=== PATIENT | male | born 1975 | race Caucasian/White ===

== ENCOUNTER 2017-09-14 20:48 | Inpatient (IN) | payer OTHER ==
[2017-09-14 20:57] VITALS: BMI 22.7
--- NOTE | 2017-09-14 21:29 | ED PDOC ---
Arrival/HPI - General Chief Complaint: Psychiatric Evaluation Time Seen by Provider: 09/14/17 20:56 Historian: Patient - History of Present Illness Narrative History of Present Illness (Text): 09/14/17 21:26 This 41 yo male with pmh depression, presents to this ED c/o worsening of depression since early this morning. Patient stated he has bee depressed for a long time, and he also noted stopping Wellbutrin " a while back ago". Patient admits having constant suicidal ideation. Patient denies hallucination, HI, drug abuse, alcohol abuse, dizziness, or abnormal gait. Time/Duration: Other (see hpi) Context: Home Past Medical History - Provider Review Nursing Documentation Reviewed: Yes - Musculoskeletal/Rheumatological Hx Falls: No - Psychiatric Hx Anxiety: Yes Hx Depression: Yes Hx Substance Use: No - Surgical History Other/Comment: left shoulder surgery - Anesthesia Hx Anesthesia: Yes Family/Social History - Physician Review Nursing Documentation Reviewed: Yes Family/Social History: Other (noncontributory) Smoking Status: Current Some Days Smoker Hx Alcohol Use: Yes Frequency of alcohol use: Socially Hx Substance Use: No Allergies/Home Meds Allergies/Adverse Reactions: Allergies No Known Allergies Allergy (Verified 09/14/17 20:56) Home Medications: Home Meds Medication Instructions Recorded Confirmed Bupropion Hydrochloride 100 mg PO DAILY 09/23/13 09/14/17 [Wellbutrin] Review of Systems - Review of Systems Constitutional: Normal. absent: Fatigue, Weight Change, Fevers Eyes: Normal ENT: Normal Respiratory: Normal. absent: SOB, Cough Cardiovascular: Normal. absent: Chest Pain Gastrointestinal: Normal Genitourinary Male: Normal Musculoskeletal: Normal Skin: Normal Neurological: Normal Endocrine: Normal Hemo/Lymphatic: Normal Psychiatric: Depression, Suicidal Ideation Physical Exam Vital Signs Temp Pulse Resp BP Pulse Ox 09/14/17 23:39 88 18 104/79 98 09/14/17 21:02 98.2 F 87 16 133/89 100 Temperature: Afebrile Blood Pressure: Normal Pulse: Regular Respiratory Rate: Normal Appearance: Positive for: Well-Appearing, Non-Toxic, Comfortable Pain Distress: None Mental Status: Positive for: Alert and Oriented X 3 - Systems Exam Head: Present: Atraumatic, Normocephalic Pupils: Present: PERRL Extroacular Muscles: Present: EOMI Conjunctiva: Present: Normal Mouth: Present: Moist Mucous Membranes Neck: Present: Normal Range of Motion Respiratory/Chest: Present: Clear to Auscultation, Good Air Exchange. No: Respiratory Distress, Accessory Muscle Use Cardiovascular: Present: Regular Rate and Rhythm, Normal S1, S2. No: Murmurs Abdomen: Present: Normal Bowel Sounds. No: Tenderness, Distention, Peritoneal Signs Back: Present: Normal Inspection Upper Extremity: Present: Normal Inspection. No: Cyanosis, Edema Lower Extremity: Present: Normal Inspection. No: Edema Neurological: Present: GCS=15, CN II-XII Intact, Speech Normal Skin: Present: Warm, Dry, Normal Color. No: Rashes Psychiatric: Present: Alert, Oriented x 3, Depressed Mood, Suicidal Ideation Medical Decision Making ED Course and Treatment: 09/14/17 23:33 PES screener examined patient and recommended admission. Patient agreed with plan. Patient is medical clear for admission. Re-evaluation Time: 23:34 Reassessment Condition: Re-examined, Improving,but remains with symptoms - Lab Interpretations Lab Results: 09/14/17 21:46 09/14/17 21:46 Lab Results 09/14/17 21:46: Alcohol, Quantitative < 10 09/14/17 21:46: Salicylates < 1 L, Acetaminophen < 10.0 L 09/14/17 21:46: Sodium 141, Potassium 3.9, Chloride 105, Carbon Dioxide 25, Anion Gap 15, BUN 22 H, Creatinine 1.3, Est GFR ( Amer) > 60, Est GFR ( Non-Af Amer) > 60, Random Glucose 133 H, Calcium 9.7, Total Bilirubin 0.4, AST 38, ALT 35, Alkaline Phosphatase 82, Total Protein 8.1, Albumin 4.4, Globulin 3.8, Albumin/Globulin Ratio 1.2 09/14/17 21:46: WBC 7.1, RBC 4.66, Hgb 15.3, Hct 43.5, MCV 93.3, MCH 32.8, MCHC 35.2, RDW 12.8, Plt Count 270, MPV 11.5 H, Gran % 36.1 L, Lymph % (Auto) 35.3 H , [place]ell % (Auto) 8.6 H, Eos % (Auto) 19.6 H, Baso % (Auto) 0.4, Gran # 2.57, Lymph # 2.5, Howell # 0.6, Eos # 1.4 H, Baso # 0.03 I have reviewed the lab results: Yes Interpretation: No clinic. lab abnormalty - RAD Interpretation Narrative RAD Interpretations (Text): 09/14/17 23:52 CXR: NAD Radiology Orders: 09/14/17 21:29 CHEST PORTABLE [RAD] Stat Disposition/Present on Arrival - Present on Arrival Any Indicators Present on Arrival: No History of DVT/PE: No History of Uncontrolled Diabetes: No Urinary Catheter: No History of Decub. Ulcer: No History Surgical Site Infection Following: None - Disposition Have Diagnosis and Disposition been Completed?: Yes Diagnosis: Major depression, Suicidal ideation Disposition: HOSPITALIZED Disposition Time: 23:34 Patient Plan: Admission Patient Problems: Current Active Problems Problem Status Onset Major depression Acute Suicidal ideation Acute Condition: STABLE Referrals: Kinza Kirk RN [Primary Care Provider] - Follow up with primary Forms: Adhysteria (Albanian)
[2017-09-14 22:02] LABS: BASO # 0.03 K/mm3 (0.0-2.0); BASO % 0.4 % (0.0-3.0); EOS # 1.4 (0.0-0.7); EOS % 19.6 % (1.5-5.0); GRAN # 2.57 (1.4-6.5); GRAN % 36.1 % (50.0-68.0); HEMOGLOBIN 15.3 g/dL (14.0-18.0); LYMPH # 2.5 (1.2-3.4); LYMPH % 35.3 % (22.0-35.0); MEAN CELL VOLUME 93.3 fl (80.0-105.0); MEAN CORPUSCULAR HEMOGLOBIN 32.8 pg (25.0-35.0); MEAN CORPUSCULAR HGB CONC 35.2 g/dl (31.0-37.0); MEAN PLATELET VOLUME 11.5 fl (7.0-11.0); MONO # 0.6 (0.1-0.6); MONO % 8.6 % (1.0-6.0); RBC 4.66 10^6/uL (3.5-6.1); RED CELL DISTRIBUTION WIDTH 12.8 % (11.5-14.5); WHITE BLOOD COUNT 7.1 10^3/ul (4.5-11.0)
[2017-09-14 22:18] LABS: ALB/GLOB RATIO 1.2 (1.1-1.8); ALBUMIN 4.4 g/dL (3.0-4.8); ALT/SGPT 35 U/L (7-56); AST/SGOT 38 U/L (17-59); BLOOD UREA NITROGEN 22 mg/dL (7-21); CALCIUM 9.7 mg/dL (8.4-10.5); GFR AFRICAN-AMERICAN > 60; GFR NON-AFRICAN AMERICAN > 60
[2017-09-14 22:19] LABS: ACETAMINOPHEN < 10.0 ug/ml (10.0-20.0); SALICYLATE < 1 mg/dL (2.0-20.0)
[2017-09-15 00:15] LABS: BARBITURATES, UR NEGATIVE (NEGATIVE); BENZODIAZEPINES, UR NEGATIVE (NEGATIVE); OPIATES, UR NEGATIVE (NEGATIVE); PHENCYCLIDINE, UR NEGATIVE (NEGATIVE)
[2017-09-15 00:16] LABS: URINE BILIRUBIN NEGATIVE (NEGATIVE); URINE BLOOD SMALL (NEGATIVE); URINE GLUCOSE (UA) NEGATIVE (NEGATIVE); URINE LEUKOCYTE ESTERASE NEGATIVE Leu/uL (NEGATIVE); URINE NITRATE NEGATIVE (NEGATIVE); URINE PROTEIN 30 mg/dL (<30 mg/dL); URINE UROBILINOGEN 0.2 E.U./dL (<1 E.U./dL)
[2017-09-15 00:23] LABS: URINE APPEARANCE CLEAR (CLEAR); URINE COLOR YELLOW (YELLOW)
[2017-09-15 00:56] LABS: URINE BACTERIA LARGE (NEG); URINE CALCIUM OXALATE CRYSTALS TRACE /hpf; URINE EPITHELIAL CELLS 0 - 2 /hpf (0-5); URINE WBC 0 - 2 /hpf (0-6)
--- NOTE | 2017-09-15 04:29 | PCM.BM ---
<Uche Villarreal O - Last Filed: 09/15/17 04:18> Treatment Plan Problems - Problems identified on initial assessmt suicidal ideation Date Initiated: 09/15/17 Time Initiated: 01:00 Assessment reference: NA Status: Active Depressed mood Date Initiated: 09/15/17 Time Initiated: 01:00 Assessment reference: NA Status: Active Treatment assets and liabiliti Patient Assests: cooperative, ADL independent Patient Liabilities: financial problems, poor support system, substance abuse - Milieu Protocol Maintain good personal hygiene: daily Encourage regular showers, daily Remind patient to perform daily oral care, daily Assist patient to perform ADL's Maintain personal safety: daily Educate patient to report safety concerns to staff, daily Monitor environment for contraband/sharps Medication safety: Monitor for expected outcome, potential side effects: daily, Assess barriers to learning: daily, Assess readiness for medication education: daily Family Contact Family involvement: Patient does not wish Family/SO involvement Family contact: Patient agrees to contact, Family contacted unit to give information Discharge/Continuing Care - Education Needs Education Needs: Patient Medication, Patient Diagnosis/Disease Process, Patient Coping Skills - Discharge Discharge Criteria: Free of Suicidal thoughts, Normal sleep pattern <Slime Eid A - Last Filed: 09/15/17 17:40> - Diagnosis (1) Cannabis abuse Status: Acute Interventions: 09/15/17 17:40 Maintaining sobriety Relapse prevention Possible rehabilitation Motivational interviewing 12-step programs: AA meetings (2) Major depression Status: Acute Interventions: 09/15/17 17:40 Psychoeducation Psychopharmacology/adjustment of medications as needed/ monitoring possible side effects Evaluate pt on daily basis Compliance with medications and follow up appointments Suicide and homicide risk assessment and prevention Relapse prevention Reduction of symptoms Improve functional status Family involvement As outpatient: cognitive behavioral therapy
[2017-09-15 06:40] VITALS: O2SAT 100
[2017-09-15 08:59] LABS: HDL CHOLESTEROL 45 mg/dL (29-60)
[2017-09-15 09:10] LABS: LDL CHOLESTEROL 107 mg/dL (0-129)
--- NOTE | 2017-09-15 09:40 | RAD ---
HISTORY: PES evaluation portable study 21:38. COMPARISON: 09/23/2013 FINDINGS: LUNGS: No active pulmonary disease. PLEURA: No significant pleural effusion identified, no pneumothorax apparent. CARDIOVASCULAR: Normal. OSSEOUS STRUCTURES: No significant abnormalities. VISUALIZED UPPER ABDOMEN: Normal. OTHER FINDINGS: None. IMPRESSION: No active disease. No significant interval change compared to the prior examination(s). Concordant results with the preliminary interpretation rendered by the emergency department physician procedure.
--- NOTE | 2017-09-15 10:03 | CARD ---
APPROVED REPORT EKG Measurement Heart [id number] <Conclusion> Normal sinus rhythm Normal ECG No change
--- NOTE | 2017-09-15 13:53 | CON ---
DATE: HISTORY OF PRESENT ILLNESS: I know Alejo from my office. I know his also. He is having a rough time now. He is a 41-year-old who is quite depressed. He got to the point, where he stopped taking his medications. He is having suicidal thoughts and just overall in a very bad state. He tells me about his and children and he wants to end it and I am glad he is in a Psychiatry floor. He understands that he needs help. PAST MEDICAL HISTORY: Anxiety, depression, he has had left shoulder surgery in the past. ALLERGIES: NO KNOWN DRUG ALLERGIES. MEDICATIONS: He takes Wellbutrin, but he stopped taking it, I think that is why he doing well. SOCIAL HISTORY: He smokes cigarettes. He drinks alcohol. He smokes marijuana. REVIEW OF SYSTEMS: No acute vision changes or hearing changes. No sore throat. No chest pain, palpitation, or shortness of breath. No cough. No abdominal pain. No nausea, vomiting, constipation, or diarrhea. No problems urinating. No skin issues. He is very depressed. Little anxious. Suicidal thoughts. PHYSICAL EXAMINATION: GENERAL: He is well-appearing. Looks distressed. He is alert and oriented x3. VITAL SIGNS: Temperature 98.2, pulse 87, respiratory rate 16, blood pressure 132/89, and O2 saturation 100%. HEENT: Head is atraumatic and normocephalic. Extraocular muscles intact. Pupils are equal, round, and reactive to light and accommodation. Throat is moist. NECK: Supple. HEART: Regular rate. Normal S1 and S2. LUNGS: Clear to auscultation bilaterally. ABDOMEN: Soft and nontender. Positive bowel sounds. No guarding. No rebound. No CVA tenderness. EXTREMITIES: No edema. NEUROLOGIC: GCS of 15. Cranial nerves II-XII are grossly intact. Speech is normal. He can stick his tongue out midline. He could close his eyes tight. He can raise his arm over his head. SKIN: Warm and dry. No apparent rashes or ulcers. LYMPH NODE: Thyroid midline. No palpable lymphadenopathy appreciated. PSYCHIATRY: He is very depressed. He is very upset and distraught. LABORATORY DATA: White count 7.1, hemoglobin 15.3, hematocrit 43.5, and platelets 270. Sodium 141, potassium 3.9, chloride 105, carbon dioxide 25, anion gap of 15, BUN 22, increase his free fluids, creatinine 1.3, GFR is greater than 60, and random sugar is 133. We will check blood sugars too. He has a calcium of 9.7, total bilirubin is 0.4, AST 38, ALT is 35, alkaline phosphatase 82, total protein is 81, albumin 4.4, and globulin is 3.8. He had a urine test, which also showed large bacteria. I will put him on antibiotics. He had an EKG, which showed normal sinus rhythm and chest x-ray with no acute distress. We will check his labs tomorrow, we will check urinalysis, culture and sensitivities, his hemoglobin A1c is pending. We will repeat his labs tomorrow. He is here for depression, marijuana use, urinary tract infection, renal insufficiency, high blood sugars. We will increase his water intake and make sure he is not a diabetic as per Psychiatry. Luther Davis DO MTDD
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
[2017-09-16 07:40] LABS: HEMOGLOBIN 14.5 g/dL (14.0-18.0); MEAN CELL VOLUME 92.9 fl (80.0-105.0); MEAN CORPUSCULAR HEMOGLOBIN 32.4 pg (25.0-35.0); MEAN CORPUSCULAR HGB CONC 34.9 g/dl (31.0-37.0); MEAN PLATELET VOLUME 11.5 fl (7.0-11.0); RBC 4.48 10^6/uL (3.5-6.1); RED CELL DISTRIBUTION WIDTH 12.9 % (11.5-14.5); WHITE BLOOD COUNT 5.8 10^3/ul (4.5-11.0)
[2017-09-16 07:53] LABS: ALB/GLOB RATIO 1.1 (1.1-1.8); ALBUMIN 3.8 g/dL (3.0-4.8); ALT/SGPT 30 U/L (7-56); AST/SGOT 23 U/L (17-59); BLOOD UREA NITROGEN 18 mg/dL (7-21); CALCIUM 9.4 mg/dL (8.4-10.5); GFR AFRICAN-AMERICAN > 60; GFR NON-AFRICAN AMERICAN > 60
--- NOTE | 2017-09-16 14:21 | PCM.PYCHPN ---
Psychiatric Progress Note - Psychiatric Progress Note Patient seen today, length of contact: 30min Patient Chief Complaint: "I am the same..." Problems Identified/Issues Discussed: Suicide/ homicide prevention, past psychiatric h/o, current psychiatric symptoms , medical problems, risk/benefits and alternatives of medications, medications compliance, coping strategies, substance abuse h/o, relapse prevention, importance of follow up with psychiatrist and therapist, discharge plan. Medical Problems: pt s/p overdose on ibuprofen Diagnostic Results: 09/16/17 06:30 09/16/17 06:30 Lab Results 09/16/17 06:30: Sodium 141, Potassium 4.2, Chloride 104, Carbon Dioxide 28, Anion Gap 13, BUN 18, Creatinine 1.2, Est GFR ( Amer) > 60, Est GFR (Non- Af Amer) > 60, Random Glucose 86, Calcium 9.4, Total Bilirubin 0.6, AST 23, ALT 30, Alkaline Phosphatase 64, Total Protein 7.2, Albumin 3.8, Globulin 3.4, Albumin/Globulin Ratio 1.1 09/16/17 06:30: WBC 5.8, RBC 4.48, Hgb 14.5, Hct 41.6 L, MCV 92.9, MCH 32.4, MCHC 34.9, RDW 12.9, Plt Count 248, MPV 11.5 H 09/15/17 08:30: Hemoglobin A1c 5.3 09/15/17 08:30: Triglycerides 67, Cholesterol 163, LDL Cholesterol Direct 107, HDL Cholesterol 45 09/14/17 23:45: Urine Opiates Screen Negative, Urine Methadone Screen Negative, Ur Barbiturates Screen Negative, Ur Phencyclidine Scrn Negative, Ur Amphetamines Screen Negative, U Benzodiazepines Scrn Negative, U Oth Cocaine Metabols Negative, U Cannabinoids Screen Positive H 09/14/17 23:45: Urine Color Yellow, Urine Appearance Clear, Urine pH 6.0, Ur Specific [place] >= 1.030, Urine Protein 30 H, Urine Glucose (UA) Negative, Urine Ketones Trace H, Urine Blood Small H, Urine Nitrate Negative, Urine Bilirubin Negative, Urine Urobilinogen 0.2, Ur Leukocyte Esterase Negative, Urine RBC 1 - 3, Urine WBC 0 - 2, Ur Epithelial Cells 0 - 2, Calcium Oxalate Crystal Trace, Urine Bacteria Large 09/14/17 21:46: Alcohol, Quantitative < 10 12/23/17 21:46: Salicylates < 1 L, Acetaminophen < 10.0 L 09/14/17 21:46: Sodium 141, Potassium 3.9, Chloride 105, Carbon Dioxide 25, Anion Gap 15, BUN 22 H, Creatinine 1.3, Est GFR ( Amer) > 60, Est GFR ( Non-Af Amer) > 60, Random Glucose 133 H, Calcium 9.7, Total Bilirubin 0.4, AST 38, ALT 35, Alkaline Phosphatase 82, Total Protein 8.1, Albumin 4.4, Globulin 3.8, Albumin/Globulin Ratio 1.2 09/14/17 21:46: WBC 7.1, RBC 4.66, Hgb 15.3, Hct 43.5, MCV 93.3, MCH 32.8, MCHC 35.2, RDW 12.8, Plt Count 270, MPV 11.5 H, Gran % 36.1 L, Lymph % (Auto) 35.3 H , [place] % (Auto) 8.6 H, Eos % (Auto) 19.6 H, Baso % (Auto) 0.4, Gran # 2.57, Lymph # 2.5, [place] # 0.6, Eos # 1.4 H, Baso # 0.03 Vital Signs Temp Pulse Resp BP Pulse Ox 09/16/17 06:55 97.7 F 64 17 103/68 09/15/17 16:00 72 105/55 L 09/15/17 07:09 97.5 F L 63 20 116/78 09/15/17 02:59 18 09/15/17 01:00 97.5 F L 65 20 129/98 H 100 09/14/17 23:39 88 18 104/79 98 09/14/17 21:02 98.2 F 87 16 133/89 100 DSM 5 Symptoms Update: shortly pt is 41yo male with self reported h/o depression, h/o substance abuse (cocaine), pt reported being sober for the past 8months, pt was brought by ambulance after pt called suicide hotline s/p overdose on ibuprofen, pt was not able to contract for safety in the ED, pt needs further evaluation and stabilization. pt was seen at the treatment team meeting today, good personal hygiene, good ADLs, appeared with psychomotor retardation, speech was underproductive, slow, monotonic, flat affect, depressed looking gentleman. pt said he tolerated remeron well, no side effects. no remorse for his suicidal act. for the past month pt tried to kill himself twice by overdose on meds and tried to hang himself. see initial note for more detailed information. during the treatment team meeting pt obviously had difficulties to concentrate and stayed focused, did not know where to sign tx plan even when this contract technical writer showed. discussed with PMD today, as per PMD family dynamic is poor, pt has no support in the community. Impression: MDD severe with no psychosis r/o PTSD h/o cocaine abuse (pt reported to be sober for the past 8months) cannabis abuse Medication Change: Yes (remeron started) Medical Record Reviewed: Yes Consults ordered or reviewed: medical consult appreciated Mental Status Examination - Cognitive Function Orientation: Person, Place, Situation Memory: Intact Attention: Poor Concentration: Poor Association: WNL Fund of Knowledge: WNL - Mood Mood: Depressed, Anxious - Affect Affect: Constricted, Flat - Formal Thought Process Formal Thought Process: No Impairment - Suicidal Ideation Suicidal Ideation: No - Homicidal Ideation Homicidal Ideation: No Goal/Treatment Plan - Goal/Treatment Plan Need for Continued Stay: Remain at risks for inpatient hospitalization, Severe depression anxiety, Discharge may exacerbated symptoms, Severe functional impairment Progress Toward Problem(s) and Goals/Treatment Plan: Milieu/structure/supportive therapy Medical consult appreciated, see medical team note for more detailed info SW consultation for discharge plan and social issues Med management rememron 15mg po hs for mdd and insomnia ativan PRN for anxiety Family involvement Follow up on labs Will monitor closely SW evaluation for d/c planning Pt was educated about risk/benefits and alternatives of medications, coping strategies (safety plan, suicide prevention), relapse prevention, importance of follow up with psychiatrist and therapist, stay away from drugs/alcohol/smoking Estimated Date of D/C: 09/20/17 (will monitor closely) - Smoking Cessation Smoking Cessation Initiated: Yes
--- NOTE | 2017-09-16 15:49 | PN ---
DATE: SUBJECTIVE: I saw him in bed. He is still not doing well at all, still very depressed, not much communication. He looks depressed and sad. He is on Ambien, Ativan, Geodon, Macrobid for urinary tract infection, NicoDerm and Remeron. PHYSICAL EXAMINATION VITAL SIGNS: He has a 97.7 temp, 64 pulse, 102/68 blood pressure, 17 respiratory rate and 100% O2 sat on room air. HEENT: His head is atraumatic and normocephalic. HEART: Regular rate. LUNGS: Clear to auscultation. ABDOMEN: Soft. EXTREMITIES: No edema. He has a 5.8 white count, 14.5 hemoglobin, 41.6 hematocrit with 248 platelets. 141 sodium, potassium 4.2, BUN is 18, creatinine 1.2, GFR is greater than 60, sugar is 86, calcium is 9.4. He has diabetes. Hemoglobin A1c is 5.3, good. AST is 23, ALT is 39, alk phos 64, total protein 7.2, cholesterol is 163. Urine with large bacteria. He is being treated for that. Positive marijuana in the drug screen. He is being seen by Psychiatry. ASSESSMENT AND PLAN: Hopefully, the medication will kick in and he will start to feel better. I do not know if that he will be 100%. He is going through a rough time with his and children. We will continue with aggressive treatment and care. He has got depression, marijuana use, urinary tract infection, renal insufficiency. We will watch very closely. Luther Davis DO
[2017-09-17] MEDS ORDERED: Magnesium Hydroxide Susp 30 ml UD PO PRN (03:32)
[2017-09-17] MEDS ORDERED: Alum-Mag Hydrox-Simethicone Susp (30 mL) PO PRN (03:32)
--- NOTE | 2017-09-17 10:00 | PN ---
DATE: SUBJECTIVE: I saw Alejo in this room this morning. He is still , kind of depressed, he does not know, what he is going to do, when he leaves here. He does not know where to go. He does not have a place to go. He does not have a job. He does not have a house. He feels like he will be out on the street. He is worried about the cold weather. I think we need to get director social service involved to help him find a place or may be help him get a job, if possible. PHYSICAL EXAMINATION: VITAL SIGNS: Temperature 97.7, pulse 68, blood pressure 100/68, and respiratory rate 20. HEENT: Head is atraumatic and normocephalic. HEART: Regular rate. LUNGS: Clear to auscultation. ABDOMEN: Soft. EXTREMITIES: No edema. LABORATORY DATA: He has a white count of 5.8, hemoglobin 14.5, and platelets 248. Sodium 141, potassium 4.2, BUN 18, creatinine 1.2, GFR is greater than 60, sugar is 86, hemoglobin A1c is 5.3, calcium is 9.4, total bilirubin 0.6, AST is 23, ALT is 30, alkaline phosphatase 64, and total protein is 7.2. Cholesterol is 163. MEDICATIONS: He is on Ambien, Ativan, Geodon, Maalox, Macrobid for UTI, milk of magnesia, Nicoderm, Remeron, and Tylenol. ASSESSMENT AND PLAN: He has urinary tract infection, he is on antibiotics for that, and he was positive for marijuana. We will continue as Psychiatry. Hopefully, social work case manager can help this with possibly get him a place at [facility] to stay in and may be help him get where he can go and possibly get a job. We discussed having a positive outlook as best we can and answered many questions for him. Junior Matos is very, very depressed. Luther Davis DO MTDD
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
--- NOTE | 2017-09-18 09:19 | PN ---
DATE: SUBJECTIVE: I saw him resting comfortably, out of bed to chair. He was happy to see me, he smiled and he shook my hand. He is looking at me. He is much better. He is feeling better overall. He is still in a very bad situation. He tells me he has no place to go. He lost his and does not have a job. He is worried about where he is going to live and how he is going to get a job and how he is going to take care of his daughter, but better mentally and he sees that he can at least try and improve. PHYSICAL EXAMINATION VITAL SIGNS: He has a 97.9 temperature, 67 pulse, 103/72 blood pressure, and 20 respiratory rate. HEENT: His head is atraumatic and normocephalic. CARDIOVASCULAR: His heart has regular rate. LUNGS: Clear to auscultation. ABDOMEN: Soft. EXTREMITIES: No edema. LABORATORY DATA: Last labs on the 09/16/2017 and he did well. MEDICATIONS: He is currently on Ambien, Ativan, Geodon, Maalox, Macrobid for UTI, milk of magnesia, Nicoderm, Remeron, and Tylenol. ASSESSMENT AND PLAN: I do think he is slowly improving. I think he needs to get confidence and that he might be able to get a job and I would find him a place where he could live, a senior living at some place, so he is not out on the street in the cold weather. He is worried about that and he is here for severe depression, marijuana use, urinary tract infection, renal insufficiency and high blood sugar at one time. I do believe he is slowly improving. Luther Davis DO
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
--- NOTE | 2017-09-19 13:07 | PN ---
DATE: SUBJECTIVE: I saw him this morning in his room. He is doing much better. He is feeling much better. He is happier. He has got a line on a job. He is looking for a place to stay. He is in better spirits. He feels like he has to take care of himself first other part of his life. He has got a plan. I do think he is improving. He is on Ambien, Ativan, Geodon, Maalox, Macrobid, milk of magnesia, Nicoderm, Remeron, and Tylenol. PHYSICAL EXAMINATION: VITAL SIGNS: He has a 97.5 temp, 64 pulse, 102/69 blood pressure, and 20 respiratory rate. HEENT: Head atraumatic, normocephalic. HEART: Regular rate. LUNGS: Clear to auscultation. ABDOMEN: Soft. EXTREMITIES: No edema. ASSESSMENT AND PLAN: Overall, he is definitely improving. I encouraged him to participate in groups, take his medications, and will continue treatment as per Psychiatry. He has depression, marijuana use, urinary tract infection, renal insufficiency, and high blood sugars. We will follow. Luther Davis DO MTDD
--- NOTE | 2017-09-19 18:23 | PCM.PYCHPN ---
Psychiatric Progress Note - Psychiatric Progress Note Patient seen today, length of contact: 30min Patient Chief Complaint: "I am feeling better. I called about a job today" Problems Identified/Issues Discussed: Patient has been actively working on his discharge plan. He called and had a phone interview for a job, and is working on housing. He is working with the social security specialist on aftercare options. He is participating appropriately with peers , and spending the majority of his time outside of his room. Medical Problems: Denied Diagnostic Results: Temp Pulse Resp BP Pulse Ox 97.7 F 80 20 142/94 H 100 09/17/17 07:37 09/17/17 16:00 09/17/17 07:37 09/17/17 16:00 09/15/17 01:00 Laboratory Last Values WBC 5.8 10^3/ul (4.5-11.0) 09/16/17 06:30 RBC 4.48 10^6/uL (3.5-6.1) 09/16/17 06:30 Hgb 14.5 g/dL (14.0-18.0) 09/16/17 06:30 Hct 41.6 % (42.0-52.0) L 09/16/17 06:30 MCV 92.9 fl (80.0-105.0) 09/16/17 06:30 MCH 32.4 pg (25.0-35.0) 09/16/17 06:30 MCHC 34.9 g/dl (31.0-37.0) 09/16/17 06:30 RDW 12.9 % (11.5-14.5) 09/16/17 06:30 Plt Count 248 10^3/uL (120.0-450.0) 09/16/17 06:30 MPV 11.5 fl (7.0-11.0) H 09/16/17 06:30 Gran % 36.1 % (50.0-68.0) L 09/14/17 21:46 Lymph % (Auto) 35.3 % (22.0-35.0) H 09/14/17 21:46 [place] % (Auto) 8.6 % (1.0-6.0) H 09/14/17 21:46 Eos % (Auto) 19.6 % (1.5-5.0) H 09/14/17 21:46 Baso % (Auto) 0.4 % (0.0-3.0) 09/14/17 21:46 Gran # 2.57 (1.4-6.5) 09/14/17 21:46 Lymph # 2.5 (1.2-3.4) 09/14/17 21:46 [place] # 0.6 (0.1-0.6) 09/14/17 21:46 Eos # 1.4 (0.0-0.7) H 09/14/17 21:46 Baso # 0.03 K/mm3 (0.0-2.0) 09/14/17 21:46 Sodium 141 mmol/L (132-148) 09/16/17 06:30 Potassium 4.2 mmol/L (3.6-5.0) 09/16/17 06:30 Chloride 104 mmol/L (98-107) 09/16/17 06:30 Carbon Dioxide 28 mmol/L (21-33) 09/16/17 06:30 Anion Gap 13 (10-20) 09/16/17 06:30 BUN 18 mg/dL (7-21) 09/16/17 06:30 Creatinine 1.2 mg/dl (0.8-1.5) 09/16/17 06:30 Est GFR ( Amer) > 60 09/16/17 06:30 Est GFR (Non-Af Amer) > 60 09/16/17 06:30 Random Glucose 86 mg/dL (70-110) 09/16/17 06:30 Hemoglobin A1c 5.3 % (4.2-6.5) 09/15/17 08:30 Calcium 9.4 mg/dL (8.4-10.5) 09/16/17 06:30 Total Bilirubin 0.6 mg/dL (0.2-1.3) 09/16/17 06:30 AST 23 U/L (17-59) 09/16/17 06:30 ALT 30 U/L (7-56) 09/16/17 06:30 Alkaline Phosphatase 64 U/L (38-126) 09/16/17 06:30 Total Protein 7.2 g/dL (5.8-8.3) 09/16/17 06:30 Albumin 3.8 g/dL (3.0-4.8) 09/16/17 06:30 Globulin 3.4 gm/dL 09/16/17 06:30 Albumin/Globulin Ratio 1.1 (1.1-1.8) 09/16/17 06:30 Triglycerides 67 mg/dL (35-160) 09/15/17 08:30 Cholesterol 163 mg/dL (130-200) 09/15/17 08:30 LDL Cholesterol Direct 107 mg/dL (0-129) 09/15/17 08:30 HDL Cholesterol 45 mg/dL (29-60) 09/15/17 08:30 Urine Color Yellow (YELLOW) 09/14/17 23:45 Urine Appearance Clear (CLEAR) 09/14/17 23:45 Urine pH 6.0 (4.7-8.0) 09/14/17 23:45 Ur Specific [place] >= 1.030 (1.005-1.035) 09/14/17 23:45 Urine Protein 30 mg/dL (<30 mg/dL) H 09/14/17 23:45 Urine Glucose (UA) Negative mg/dL (NEGATIVE) 09/14/17 23:45 Urine Ketones Trace mg/dL (NEGATIVE) H 09/14/17 23:45 Urine Blood Small (NEGATIVE) H 09/14/17 23:45 Urine Nitrate Negative (NEGATIVE) 09/14/17 23:45 Urine Bilirubin Negative (NEGATIVE) 09/14/17 23:45 Urine Urobilinogen 0.2 E.U./dL (<1 E.U./dL) 09/14/17 23:45 Ur Leukocyte Esterase Negative [place]/uL (NEGATIVE) 09/14/17 23:45 Urine RBC 1 - 3 /hpf (0-2) 09/14/17 23:45 Urine WBC 0 - 2 /hpf (0-6) 09/14/17 23:45 Ur Epithelial Cells 0 - 2 /hpf (0-5) 09/14/17 23:45 Calcium Oxalate Crystal Trace /hpf 09/14/17 23:45 Urine Bacteria Large (NEG) 09/14/17 23:45 Salicylates < 1 mg/dL (2.0-20.0) L 09/14/17 21:46 Urine Opiates Screen Negative (NEGATIVE) 09/14/17 23:45 Urine Methadone Screen Negative (NEGATIVE) 09/14/17 23:45 Acetaminophen < 10.0 ug/ml (10.0-20.0) L 09/14/17 21:46 Ur Barbiturates Screen Negative (NEGATIVE) 09/14/17 23:45 Ur Phencyclidine Scrn Negative (NEGATIVE) 09/14/17 23:45 Ur Amphetamines Screen Negative (NEGATIVE) 09/14/17 23:45 U Benzodiazepines Scrn Negative (NEGATIVE) 09/14/17 23:45 U Oth Cocaine Metabols Negative (NEGATIVE) 09/14/17 23:45 U Cannabinoids Screen Positive (NEGATIVE) H 09/14/17 23:45 Alcohol, Quantitative < 10 mg/dL (0-10) 09/14/17 21:46 Temp Pulse Resp BP Pulse Ox 97.9 F 82 20 117/83 100 09/18/17 07:36 09/18/17 16:00 09/18/17 07:36 09/18/17 16:00 09/15/17 01:00 Temp Pulse Resp BP Pulse Ox 97.5 F L 76 20 148/98 H 100 09/19/17 07:30 09/19/17 16:00 09/19/17 07:30 09/19/17 16:00 09/15/17 01:00 Medication Change: No Medical Record Reviewed: Yes Consults ordered or reviewed: Medical follow up per Dr Davis Mental Status Examination - Cognitive Function Orientation: Person, Place, Situation Memory: Intact Attention: Poor Concentration: Poor Association: WNL Fund of Knowledge: WNL - Mood Mood: Depressed, Anxious - Affect Affect: Constricted, Flat - Formal Thought Process Formal Thought Process: No Impairment - Suicidal Ideation Suicidal Ideation: No - Homicidal Ideation Homicidal Ideation: No Goal/Treatment Plan - Goal/Treatment Plan Need for Continued Stay: Remain at risks for inpatient hospitalization, Severe depression anxiety, Discharge may exacerbated symptoms, Severe functional impairment Progress Toward Problem(s) and Goals/Treatment Plan: Psychoeducation Psychopharmacology/adjustment of medications as needed/ monitoring possible side effects Evaluate pt on daily basis Compliance with medications and follow up appointments Suicide and homicide risk assessment and prevention Relapse prevention Reduction of symptoms Improve functional status Family involvement As outpatient: cognitive behavioral therapy Estimated Date of D/C: 09/20/17 (will monitor closely)
[2017-09-20 07:19] VITALS: PULSE 73; RESP 21
[2017-09-20 07:32] VITALS: BP 119/84
--- NOTE | 2017-09-20 08:31 | PN ---
DATE: SUBJECTIVE: I saw Alejo in his bed in the Psychiatric Unit this morning. He is in good spirits. He has got a plan. He tells me, he is leaving today. He is going to [place]. He is got a place to stay there. He is going for a job. He is in better spirits than when he came in and he is not as depressed. MEDICATIONS: He is on Ambien, Ativan, Geodon, Maalox, Macrobid, milk of magnesia, NicoDerm, Remeron, and Tylenol. PHYSICAL EXAMINATION: VITAL SIGNS: 98 temperature, 73 pulse, 130/95 blood pressure, and 21 respiratory rate, as a highest of blood pressure has been. HEENT: His head is atraumatic and normocephalic. HEART: Regular rate. LUNGS: Clear to auscultation. ABDOMEN: Soft. EXTREMITIES: No edema. IMPRESSION AND PLAN: He was never on blood pressure pills. I am going to have them retake the blood pressure now. I will also add some Norvasc 2.5 one daily and we will check him in the office. He is being my patient for many years. He was here for severe depression, marijuana, urinary tract infection, renal insufficiency, had blood sugar and now a little bit of hypertension. Luther Davis DO
[2017-09-20 08:52] VITALS: TEMP 97.7
--- NOTE | 2017-09-20 10:24 | PCM.PYCHDC ---
Mental Status Examination - Mental Status Examination Orientation: Person, Place, Situation, Time Memory: Intact Mood: Neutral Affect: Broad Speech: Appropriate Attention: WNL Concentration: WNL Association: WNL Fund of Knowledge: WNL Formal Thought Process: No Impairment Description of patient's judgement and insight: Patient denies being suicidal or homicidal, he appears to be in no imminent danger of hurting himself or others Psychotic Thoughts and Behaviors: Patient denies the presence of hallucinations, delusions or paranoia. Suicidal Ideation: No Current Homicidal Ideation?: No Discharge Summary - Discharge Note Reason for Hospitalization: Per Dr Eid's admission note: shortly pt is 41yo male with self reported h/o depression, h/o substance abuse (cocaine), pt reported being sober for the past 8months, pt was brought by ambulance after pt called suicide hotline s/p overdose on ibuprofen, pt was not able to contract for safety in the ED, pt needs further evaluation and stabilization. Psychiatric History (includes Medical, Family, Personal Hx): see HPI Laboratory Data: Laboratory Tests 09/14/17 09/14/17 09/14/17 21:46 21:46 21:46 WBC 7.1 RBC 4.66 Hgb 15.3 Hct 43.5 MCV 93.3 MCH 32.8 MCHC 35.2 RDW 12.8 Plt Count 270 MPV 11.5 H Gran % 36.1 L Lymph % (Auto) 35.3 H [place] % (Auto) 8.6 H Eos % (Auto) 19.6 H Baso % (Auto) 0.4 Gran # 2.57 Lymph # 2.5 [place] # 0.6 Eos # 1.4 H Baso # 0.03 Sodium 141 Potassium 3.9 Chloride 105 Carbon Dioxide 25 Anion Gap 15 BUN 22 H Creatinine 1.3 Est GFR ( Amer) > 60 Est GFR (Non-Af Amer) > 60 Random Glucose 133 H Hemoglobin A1c Calcium 9.7 Total Bilirubin 0.4 AST 38 ALT 35 Alkaline Phosphatase 82 Total Protein 8.1 Albumin 4.4 Globulin 3.8 Albumin/Globulin Ratio 1.2 Triglycerides Cholesterol LDL Cholesterol Direct HDL Cholesterol Urine Color Urine Appearance Urine pH Ur Specific [place] Urine Protein Urine Glucose (UA) Urine Ketones Urine Blood Urine Nitrate Urine Bilirubin Urine Urobilinogen Ur Leukocyte Esterase Urine RBC Urine WBC Ur Epithelial Cells Calcium Oxalate Crystal Urine Bacteria Salicylates < 1 L Urine Opiates Screen Urine Methadone Screen Acetaminophen < 10.0 L Ur Barbiturates Screen Ur Phencyclidine Scrn Ur Amphetamines Screen U Benzodiazepines Scrn U Oth Cocaine Metabols U Cannabinoids Screen Alcohol, Quantitative 09/14/17 09/14/17 09/14/17 21:46 23:45 23:45 WBC RBC Hgb Hct MCV MCH MCHC RDW Plt Count MPV Gran % Lymph % (Auto) [place] % (Auto) Eos % (Auto) Baso % (Auto) Gran # Lymph # [place] # Eos # Baso # Sodium Potassium Chloride Carbon Dioxide Anion Gap BUN Creatinine Est GFR ( Amer) Est GFR (Non-Af Amer) Random Glucose Hemoglobin A1c Calcium Total Bilirubin AST ALT Alkaline Phosphatase Total Protein Albumin Globulin Albumin/Globulin Ratio Triglycerides Cholesterol LDL Cholesterol Direct HDL Cholesterol Urine Color Yellow Urine Appearance Clear Urine pH 6.0 Ur Specific [place] >= 1.030 Urine Protein 30 H Urine Glucose (UA) Negative Urine Ketones Trace H Urine Blood Small H Urine Nitrate Negative Urine Bilirubin Negative Urine Urobilinogen 0.2 Ur Leukocyte Esterase Negative Urine RBC 1 - 3 Urine WBC 0 - 2 Ur Epithelial Cells 0 - 2 Calcium Oxalate Crystal Trace Urine Bacteria Large Salicylates Urine Opiates Screen Negative Urine Methadone Screen Negative Acetaminophen Ur Barbiturates Screen Negative Ur Phencyclidine Scrn Negative Ur Amphetamines Screen Negative U Benzodiazepines Scrn Negative U Oth Cocaine Metabols Negative U Cannabinoids Screen Positive H Alcohol, Quantitative < 10 09/15/17 09/15/17 09/16/17 08:30 08:30 06:30 WBC 5.8 RBC 4.48 Hgb 14.5 Hct 41.6 L MCV 92.9 MCH 32.4 MCHC 34.9 RDW 12.9 Plt Count 248 MPV 11.5 H Gran % Lymph % (Auto) [place] % (Auto) Eos % (Auto) Baso % (Auto) Gran # Lymph # [place] # Eos # Baso # Sodium Potassium Chloride Carbon Dioxide Anion Gap BUN Creatinine Est GFR ( Amer) Est GFR (Non-Af Amer) Random Glucose Hemoglobin A1c 5.3 Calcium Total Bilirubin AST ALT Alkaline Phosphatase Total Protein Albumin Globulin Albumin/Globulin Ratio Triglycerides 67 Cholesterol 163 LDL Cholesterol Direct 107 HDL Cholesterol 45 Urine Color Urine Appearance Urine pH Ur Specific [place] Urine Protein Urine Glucose (UA) Urine Ketones Urine Blood Urine Nitrate Urine Bilirubin Urine Urobilinogen Ur Leukocyte Esterase Urine RBC Urine WBC Ur Epithelial Cells Calcium Oxalate Crystal Urine Bacteria Salicylates Urine Opiates Screen Urine Methadone Screen Acetaminophen Ur Barbiturates Screen Ur Phencyclidine Scrn Ur Amphetamines Screen U Benzodiazepines Scrn U Oth Cocaine Metabols U Cannabinoids Screen Alcohol, Quantitative 09/16/17 06:30 WBC RBC Hgb Hct MCV MCH MCHC RDW Plt Count MPV Gran % Lymph % (Auto) [place] % (Auto) Eos % (Auto) Baso % (Auto) Gran # Lymph # [place] # Eos # Baso # Sodium 141 Potassium 4.2 Chloride 104 Carbon Dioxide 28 Anion Gap 13 BUN 18 Creatinine 1.2 Est GFR ( Amer) > 60 Est GFR (Non-Af Amer) > 60 Random Glucose 86 Hemoglobin A1c Calcium 9.4 Total Bilirubin 0.6 AST 23 ALT 30 Alkaline Phosphatase 64 Total Protein 7.2 Albumin 3.8 Globulin 3.4 Albumin/Globulin Ratio 1.1 Triglycerides Cholesterol LDL Cholesterol Direct HDL Cholesterol Urine Color Urine Appearance Urine pH Ur Specific [place] Urine Protein Urine Glucose (UA) Urine Ketones Urine Blood Urine Nitrate Urine Bilirubin Urine Urobilinogen Ur Leukocyte Esterase Urine RBC Urine WBC Ur Epithelial Cells Calcium Oxalate Crystal Urine Bacteria Salicylates Urine Opiates Screen Urine Methadone Screen Acetaminophen Ur Barbiturates Screen Ur Phencyclidine Scrn Ur Amphetamines Screen U Benzodiazepines Scrn U Oth Cocaine Metabols U Cannabinoids Screen Alcohol, Quantitative Temp Pulse Resp BP Pulse Ox 97.7 F 73 21 119/84 100 09/20/17 08:48 09/20/17 07:31 09/20/17 07:31 09/20/17 07:31 09/15/17 01:00 Consultations:: List each consultation separately and include: 1. Reason for request. 2. Findings. 3. Follow-up Consultations: Medical follow up per Dr Davis Summary of Hospital Course include:: 1. Description of specific treatment plan utilized for patients during their course of treatmen. 2. Summarize the time- course for resolution of acute symptoms and/or regressed behaviors. 3. Describe issues identified and worked on during hospitalization. 4. Describe medication utilized. 5. Describe medical problems identified and treated. 6. Reassessment of suicide risk - Diagnosis (1) Cannabis abuse Current Visit: Yes Status: Chronic Priority: Medium (2) Major depression Current Visit: Yes Status: Resolved Priority: Medium - Final Diagnosis (DSM 5) Condition upon Discharge: STABLE Disposition: HOME/ ROUTINE Follow-up Treatment Plan: Psychoeducation Psychopharmacology/adjustment of medications as needed/ monitoring possible side effects Evaluate pt on daily basis Compliance with medications and follow up appointments Suicide and homicide risk assessment and prevention Relapse prevention Reduction of symptoms Improve functional status Family involvement As outpatient: cognitive behavioral therapy Prescriptions/Medication Reconciliation: Mirtazapine [Remeron] 15 mg PO HS #14 tab - Smoking Cessation Smoking Cessation Medication prescribed: Yes - Antipsychotic Medications Pt discharged on 2 or more routine antipsychotic medications: No
== END 2017-09-20 14:57 | disposition home or self-care (01) | DRG 885 ==
LOC: ED 20:48 → ERH 23:47 → PSYC 09-15 01:02
PROVIDERS: ADMIT Psychiatry & Neurology Psychiatry; ATTEND Psychiatry & Neurology Psychiatry
DX: F32.2 Major depressive disorder, single episode, severe without psychotic features (principal); R45.851 Suicidal ideations; N39.0 Urinary tract infection, site not specified; F12.10 Cannabis abuse, uncomplicated; G47.00 Insomnia, unspecified; F41.9 Anxiety disorder, unspecified; F17.210 Nicotine dependence, cigarettes, uncomplicated; N28.9 Disorder of kidney and ureter, unspecified; I10 Essential (primary) hypertension; Z62.810 Personal history of physical and sexual abuse in childhood; Z59.9 Problem related to housing and economic circumstances, unspecified